=== PATIENT | female | born 1930 | race Caucasian/White ===

== ENCOUNTER 2018-10-10 22:56 | Emergency (ER) | payer OTHER ==
[~2018-10-10] VITALS: Ht 160 cm; Wt 81.6 kg
[2018-10-10 23:33] LABS: Basophils # (auto) 0 uL; Eosinophils # (auto) 0.1 uL; Eosinophils % (auto) 2.2 % (0.0-7.0); Hemoglobin 10.5 g/dL (12.2-16.2); Lymphocytes # (auto) 1.1 uL; Mean Corpuscular Hemoglobin 24.9 pg (28.0-32.0); Monocytes # (auto) 0.3 uL; White Blood Cell 3.2 10^3/uL (4.4-10.8)
[2018-10-10 23:34] VITALS: BP 135/59
[2018-10-10 23:35] LABS: Basophils % (auto) 1.1 % (0.0-2.0); Hematocrit 31.9 % (36.0-46.0); Lymphocytes % (auto) 35.8 % (10.0-50.0); Mean Corpuscular Volume 75.3 fL (80.0-100.0); Monocytes % (auto) 10.1 % (0.0-12.0); Neutrophils # (auto) 1.6 uL; Neutrophils % (auto) 50.8 % (37.0-80.0); Nucleated Red Blood Cells % 0.1 %; Platelet Count (auto) 170 10^3/uL (140-450); Red Blood Cells 4.24 10^6/uL (4.0-5.20); Red Cell Distribution Width 19.7 % (11.8-14.3)
[2018-10-10 23:46] LABS: INR 1.02 (0.9-1.15); Partial Thromboplastin Time 25.6 sec (23.64-32.05)
[2018-10-10 23:49] LABS: BUN/Creatinine Ratio 26.8; Calcium 8.3 mg/dL (8.5-10.1)
[2018-10-10 23:51] LABS: Bilirubin, Total 0.5 mg/dL (0.2-1.0); Total Protein 6.6 g/dL (6.4-8.2)
== END 2018-10-11 01:21 | disposition home or self-care (01) ==
LOC: EDBD 22:56 → ER 23:01
DX: R41.82 Altered mental status, unspecified (principal); F03.90 Unspecified dementia, unspecified severity, without behavioral disturbance, psychotic disturbance, mood disturbance, and anxiety; I10 Essential (primary) hypertension; E03.9 Hypothyroidism, unspecified; Z88.6 Allergy status to analgesic agent; Z88.5 Allergy status to narcotic agent
CPT/HCPCS: 36415; 70450; 80053; 85025; 85610; 85730; 93005